=== PATIENT | male | born 1980 | race Caucasian/White ===

== ENCOUNTER 2021-10-01 13:20 | Outpatient (CLI) | payer OTHER, SELFPAY ==
--- NOTE | ~2021-10-01 | XR_ITS ---
EXAMINATION: XR knee LT min 4V DATE: 10/01/2021 14:15 INDICATION: Left knee pain. TECHNIQUE: 4 views of left knee including standing views were obtained. COMPARISON: None. FINDINGS: Bone alignment is normal. No fracture. There is mild tricompartmental osteoarthritis charac terized by tiny osteophytes. No joint space narrowing. There is a small knee joint effusion. IMPRESSION: 1. Mild left knee osteoarthritis. Reviewed, dictated and finalized at location A.
--- NOTE | ~2021-10-01 | XR_ITS ---
EXAMINATION: XR knee RT min 4V DATE: 10/01/2021 14:15 INDICATION: Right knee pain. TECHNIQUE: 4 views of right knee including standing views were obtained. COMPARISON: None. FINDINGS: Bone alignment is normal. No fracture. There is moderate osteoarthritis of medial compartme nt and mild osteoarthritis of lateral and patellofemoral compartments. There is a small knee joint ef fusion. IMPRESSION: 1. Moderate right knee osteoarthritis. 2. Small right knee joint effusion. Reviewed, dictated and finalized at location A.
[2021-10-01 14:02] LABS: Hematocrit 45.1 % (42.0-52.0); Hemoglobin 14.6 g/dL (14.0-18.0); Mean Corpuscular HGB Conc 32.4 g/dl (32-36); Mean Corpuscular Volume 83.4 fl (80-100); Mean Platelet Volume 9.7 fl (7.4-10.4); Platelet Count Result 267 k/mm3 (150-375); Red Blood Count 5.41 M/mm3 (4.6-6.20); Red Cell Distribution Width 14.1 % (11.5-14.5); White Blood Count 7.6 K/mm3 (4.5-10.0)
[2021-10-01 14:10] LABS: Add Urine Microscopic? YES; Amorphous Sediment Urine Few; Appearance Urine Cloudy (Clear); Bacteria Urine Trace /hpf; Bilirubin Urine Negative (Negative); Blood Urine 1+ (Negative); Color Urine Yellow (Yellow); Glucose Urine UA Negative (Negative); Ketones Urine Negative (Negative); Leukocyte Esterase Ur Negative LEU/UL (NEGATIVE); Mucus Urine Rare /lpf; Nitrate Urine Negative (Negative); Protein Urine Negative (Negative); Specific Grav Ur 1.019 (1.001-1.035); Urobilinogen Urine Negative mg/dL (<2.0); WBC Urine 0-3 /hpf (0-3)
[2021-10-01 14:15] LABS: Alanine Aminotransferase 28 U/L (4-50); Albumin Level 4.2 g/dL (3.5-5.1); Alkaline Phosphatase 53 U/L (38-126); Anion Gap 5 mmol/L (8-16); Aspartate Amino Transferase 29 U/L (17-59); Bilirubin,Total 0.7 mg/dL (0.2-1.3); Blood Urea Nitrogen 20 mg/dL (9-20); Calcium 8.9 mg/dL (8.4-10.2); Carbon Dioxide 29 mmol/L (22-30); Chloride 105 mmol/L (98-107); Cholesterol 151 mg/dL (0-200); Estimated Glomerular Filt Rate > 60; Glucose 111 mg/dL (65-110); HDL Direct 45 mg/dL; Potassium 3.9 mmol/L (3.4-5.0); Sodium 139 mmol/L (137-145); Triglycerides 121 mg/dL (<150)
[2021-10-01 14:24] LABS: LDL Cholesterol Direct 75 mg/dL
[2021-10-01 14:36] LABS: Hemoglobin A1C 5.2 % (<5.7)
[2021-10-01 14:46] LABS: Thyroid Stimulating Hormone 0.172 uIU/mL (0.465-4.680)
[2021-10-01 14:47] LABS: MALB Creatinine Ratio 5.4 mg/g (0-30); Microalbumin Urine Random 6.9 mg/L (0-16.7); Prostate Specific Antigen 1.1 ng/mL (< OR = 4.0)
[2021-10-01 14:52] LABS: HIV 1/2 Ab P24 Ag Result Negative (Negative)
[2021-10-01 14:57] LABS: Free T4 Free Thyroxine 1.16 ng/mL (0.78-2.19); Vitamin D 25 Hydroxy 38.7 ng/mL
[2021-10-01 15:14] LABS: Hepatitis B Surface Antigen Negative (Negative)
[2021-10-01 15:19] LABS: HAV RESULT Negative (Negative); Hepatitis B Core IgM Result Negative (Negative)
[2021-10-01 15:31] LABS: Hepatitis C Virus Antibody Negative (Negative)
[2021-10-02 12:23] LABS: Rapid Plasma Reagin Non-Reactive (NonReactive)
[2021-10-04 20:43] LABS: HSV 1 IgM Screen Negative (Negative); HSV 2 IgM Screen Negative (Negative)
== END 2021-10-01 13:21 | disposition home or self-care (01) ==
PROVIDERS: Visit Provider Emergency Medicine
DX: Z00.00 Encounter for general adult medical examination without abnormal findings (principal); I10 Essential (primary) hypertension; K21.00 Gastro-esophageal reflux disease with esophagitis, without bleeding; E78.5 Hyperlipidemia, unspecified; M17.0 Bilateral primary osteoarthritis of knee; M25.461 Effusion, right knee
CPT/HCPCS: 36415; 73564; 80053; 80061; 80074; 81001; 82043; 82306; 83036; 84153; 84439; 84443; 85027; 86592; 86695; 86696; 86703; 87491; 87591; G0103; G0432

== ENCOUNTER 2021-10-10 10:50 | Outpatient (CLI) | payer OTHER, SELFPAY ==
--- NOTE | ~2021-10-10 | XR_ITS ---
EXAMINATION: XR wrist RT min 3V, XR hand RT min 3V EXAM DATE: 10/10/2021 11:13 INDICATION: Right thumb pain X2 days, no known injury other than repetition. TECHNIQUE: Right hand frontal, lateral and oblique projections obtained and reviewed. Right wrist fro ntal, frontal with ulnar deviation, oblique and lateral projections obtained and reviewed. There is no prior study for comparison. FINDINGS: Right metacarpal bones are unremarkable. Right wrist scapholunate joint space is maintain ed. The joint spaces are uniform. There are no bony erosions identified. There are no acute fracture s or dislocations identified. There is no subcutaneous gas. The soft tissue is unremarkable. Ther e are no radiopaque foreign bodies. IMPRESSION: 1. Unremarkable right hand, wrist exam. Reviewed, dictated and finalized at location B. IMPRESSION: 1. Unremarkable right hand, wrist exam.
== END 2021-10-10 10:51 | disposition home or self-care (01) ==
PROVIDERS: PCP Emergency Medicine; Visit Provider Emergency Medicine
DX: M25.541 Pain in joints of right hand (principal)
CPT/HCPCS: 73110; 73130

== ENCOUNTER 2021-10-14 13:24 | Outpatient (CLI) | payer OTHER, SELFPAY ==
[2021-10-14 14:35] LABS: Hemoglobin A1C 5.2 % (<5.7)
[2021-10-14 14:47] LABS: Thyroid Stimulating Hormone 0.322 uIU/mL (0.465-4.680)
[2021-10-14 14:55] LABS: Free T4 Free Thyroxine 1.32 ng/mL (0.78-2.19)
[2021-10-17 04:00] LABS: Thyroglobulin 14.1 ng/mL (2.8-40.9); Thyroglobulin Antibodies <1 IU/mL (<=1)
== END 2021-10-14 13:25 | disposition home or self-care (01) ==
PROVIDERS: PCP Emergency Medicine; Visit Provider Emergency Medicine
DX: E03.9 Hypothyroidism, unspecified (principal)
CPT/HCPCS: 36415; 83036; 84432; 84439; 84443; 84481; 86800

== ENCOUNTER 2023-09-08 11:58 | Outpatient (CLI) | payer OTHER, SELFPAY ==
[2023-09-08 12:43] LABS: Hematocrit 45.2 % (42.0-52.0); Hemoglobin 14.5 g/dL (14.0-18.0); Mean Corpuscular HGB Conc 32.1 g/dl (32-36); Mean Corpuscular Hemoglobin 26.1 pg (26-34); Mean Corpuscular Volume 81.4 fl (80-100); Mean Platelet Volume 9.5 fl (7.4-10.4); Platelet Count Result 302 k/mm3 (150-375); Red Blood Count 5.55 M/mm3 (4.6-6.20); Red Cell Distribution Width 13.9 % (11.5-14.5)
[2023-09-08 12:54] LABS: Alanine Aminotransferase 56 U/L (6-50); Albumin Level 4.6 g/dL (3.5-5.1); Alkaline Phosphatase 56 U/L (38-126); Anion Gap 7 mmol/L (8-16); Aspartate Amino Transferase 43 U/L (17-59); Bilirubin,Total 0.7 mg/dL (0.2-1.3); Blood Urea Nitrogen 21 mg/dL (9-20); Calcium 9.6 mg/dL (8.4-10.2); Carbon Dioxide 25 mmol/L (22-30); Chloride 106 mmol/L (98-107); Cholesterol 190 mg/dL (0-200); Estimated Glomerular Filt Rate > 60; Glucose 94 mg/dL (65-110); HDL Direct 49 mg/dL; Potassium 3.9 mmol/L (3.4-5.0); Sodium 138 mmol/L (137-145); Triglycerides 171 mg/dL (<150)
[2023-09-08 13:06] LABS: LDL Cholesterol Direct 120 mg/dL
[2023-09-08 13:25] LABS: Thyroid Stimulating Hormone 0.041 uIU/mL (0.465-4.680)
[2023-09-08 13:36] LABS: Free T4 Free Thyroxine 1.39 ng/mL (0.78-2.19); Vitamin D 25 Hydroxy 39.2 ng/mL
== END 2023-09-08 11:59 | disposition home or self-care (01) ==
PROVIDERS: PCP Emergency Medicine; Visit Provider Emergency Medicine
DX: Z00.00 Encounter for general adult medical examination without abnormal findings (principal); E78.5 Hyperlipidemia, unspecified; E55.9 Vitamin D deficiency, unspecified
CPT/HCPCS: 36415; 80053; 80061; 82306; 84439; 84443; 85027